=== PATIENT | female | born 1985 | race Two or more races ===

== ENCOUNTER 2018-10-19 17:59 | Emergency (ER) | payer SELFPAY ==
[2018-10-19] MEDS ORDERED: IBUPROFEN 600 MG TABLET PO ONE (18:07)
[2018-10-19] MEDS ORDERED: BUPIVACAINE HCL 0.5 % INJ/PF 30 ML SDV INJ ONE (18:07)
[2018-10-19] MEDS ORDERED: LIDOCAINE 1% INJ (10 MG/ML) 10 ML MDV INJ ONE (18:07)
--- NOTE | 2018-10-19 18:09 | ER Document Report ---
Addendum entered and electronically signed by TYLOR KING NP 10/19/18 18:38: ED Medical Screen (RME) - General Chief Complaint: Finger Injury Stated Complaint: FINGER INJURY Time Seen by Provider: 10/19/18 18:07 Mode of Arrival: Ambulatory TRAVEL OUTSIDE OF THE [place] IN LAST 30 DAYS: No - HPI Notes: 10/19/18 18:37 Digital block performed of the left middle finger using Marcaine. Patient had a normal neurovascular exam distally prior to anesthesia. Patient will be seen and evaluated by another provider for further evaluation and repair. - Related Data Allergies/Adverse Reactions: No Known Allergies Allergy (Unverified 10/19/18 18:06) Original Note: ED Medical Screen (RME) - General Chief Complaint: Finger Injury Stated Complaint: FINGER INJURY Time Seen by Provider: 10/19/18 18:07 Mode of Arrival: Ambulatory Information source: Patient TRAVEL OUTSIDE OF THE [place] IN LAST 30 DAYS: No - HPI Patient complains to provider of: LEFT FINGER INJURY Notes: 10/19/18 18:08 Patient here with complaints of left finger injury. She was picking up a bed when the bed actually fell injuring her left finger. No other injury. Tetanus up-to-date. Exam Patient noted to have distraction of the nail at the base of the nail with some bleeding. Plan X-ray, tetanus is up-to-date, potential digital block, Motrin ordered, patient will be seen and evaluated by provider in the back. An initial examination was made on the patient as part of the triage process, and it was determined a more comprehensive evaluation was necessary. Initial labs were ordered and patient was transferred to another provider in the ED who assumed care and finished evaluation and plan. - Related Data Allergies/Adverse Reactions: No Known Allergies Allergy (Unverified 10/19/18 18:06)
--- NOTE | 2018-10-19 18:39 | RADIOLOGY REPORT (SQ) ---
EXAM DESCRIPTION: HAND LEFT 3 VIEWS COMPLETED DATE/TIME: 10/19/2018 6:30 pm REASON FOR STUDY: FINGER INJURY COMPARISON: None. EXAM PARAMETERS: NUMBER OF VIEWS: Three views. TECHNIQUE: AP, lateral and oblique radiographic images acquired of the left hand. LIMITATIONS: None. FINDINGS: MINERALIZATION: Normal. BONES: Acute transverse fracture left 3rd finger distal phalanx at the level of the fingernail. Mild palmar angulation of the distal fracture fragment. JOINTS: No effusions. SOFT TISSUES: Swelling and laceration over the left 3rd finger tip at the level of the nail bed OTHER: No other significant finding. IMPRESSION: Acute transverse fracture distal phalanx left 3rd finger TECHNICAL DOCUMENTATION: JOB ID: [id number]- All Rights Reserved Reading location - IP/workstation name: [email or web address]
[2018-10-19] MEDS ORDERED: DIPH/PERTUSS(ACELL)/TETANUS VAC/PF 0.5 ML SYR (>=10YO) IM ONE (20:34)
[2018-10-19] MEDS ORDERED: LIDOCAINE 1% INJ (10 MG/ML) 10 ML MDV ONE (20:34)
--- NOTE | 2018-10-19 20:38 | ER Document Report ---
ED Hand/Wrist Injury - General Chief Complaint: Finger Injury Stated Complaint: FINGER INJURY Time Seen by Provider: 10/19/18 18:07 Primary Care Provider: YULIANA CINTRON DO [ACTIVE STAFF] - Follow up as needed Mode of Arrival: Ambulatory TRAVEL OUTSIDE OF THE [place] IN LAST 30 DAYS: No - HPI Notes: Patient presents to the emergency department with the chief complaint of left middle finger injury. Jermaineii used for interpretation. She states that earlier today she was lifting her bed when her finger got stuck in between the metal spring. Patient reports bleeding and deformity with severe pain. States that her tetanus is not up-to-date. She reported pain 5 out of 5. Denies any other injury. Prior to getting the digital block denied numbness or tingling to her finger. Patient was blocked in triage and denies pain at this time. - Related Data Allergies/Adverse Reactions: No Known Allergies Allergy (Unverified 10/19/18 18:06) Past Medical History - General Information source: Patient - Social History Smoking Status: Current Every Day Smoker Cigarette use (# per day): Yes - 1-2 cigarettes per day Smoking Education Provided: Yes - explained smoking can delay wound healing Frequency of alcohol use: None Drug Abuse: None Family History: None Patient has suicidal ideation: No Patient has homicidal ideation: No Renal/ Medical History: Denies: Hx Peritoneal Dialysis Review of Systems - Review of Systems Constitutional: No symptoms reported EENT: No symptoms reported Cardiovascular: No symptoms reported Respiratory: No symptoms reported Gastrointestinal: No symptoms reported Genitourinary: No symptoms reported Female Genitourinary: No symptoms reported Musculoskeletal: See HPI Skin: See HPI Hematologic/Lymphatic: No symptoms reported Neurological/Psychological: No symptoms reported Physical Exam - Vital signs Vitals: Temp Pulse Resp BP Pulse Ox 98 F 82 20 139/84 H 96 10/19/18 18:08 10/19/18 18:08 10/19/18 18:08 10/19/18 18:08 10/19/18 18:08 Interpretation: Normal - Respiratory Respiratory status: No respiratory distress Chest status: Nontender Breath sounds: Normal Chest palpation: Normal - Cardiovascular Rhythm: Regular Heart sounds: Normal auscultation, S1 appreciated, S2 appreciated - Abdominal Inspection: Normal Distension: No distension Bowel sounds: Normal Tenderness: Nontender Organomegaly: No organomegaly - Extremities Hand: Deformity - Deformity at the distal phalanx, + laceration and oozing of blood when dressing removed. Nail from cuticle. Patient able to bend finger at PIP joint, unable to flex/communication clerk distal phalanx due to injury. < 2 sec cap refill., Laceration, Nail injury Course - Re-evaluation Re-evalutation: 10/20/18 Initial x-ray showed an acute transverse fracture of the distal phalanx left third finger. Mild palmar angulation of the distal fracture fragment. No effusions. Swelling and laceration of the left third fingertip at the level of the nail bed. With assistance of Bebeto Henning PA-C, distal phalanx was reduced to provided adequate alignment. Patient tolerated well as her finger was still numb from the digital block. After the reduction, two 4-0 prolene sutures used to reattach nail to the nail bed and cuticle. Will obtain repeat XRAY and consult Orthopedics. Discussed case with Dr. Gil, agrees with plan at this time. Tdap updated in ER. 10/20/18 Repeat post-reduction x-ray read and showed and a considerable reduction of the fracture of the distal phalanx of the third finger. There is still a small amount of dorsal displacement and distraction. Called Dr. Cintron for Orthopedic consult who was in the ER and saw x-rays. Discussed case and agreed with treatment plan to include antibiotics, tdap, pain medication, xeroform and finger splint. Dr. Cintron states he will see the patient in the office later this week. Patient to call and make an appointment. Xeroform and finger splint applied to finger. Tip of finger warm and pink after finger splint applied. < 2 sec cap refill. Discharge instructions discussed in great detail with patient using the [employer] enginehouse brakeman. Provided patient with Dr. Kunz's address and telephone number and instructed to call tomorrow to make an appointment for later in the week. Patient given antibiotics as well as pain medication. Instructed to keep the dressing and finger splint clean dry and intact until orthopedic follow up. Patient aware that 2 sutures needs to be removed in 7-10 days and that she can return to the ER for this or go to Ortho. Patient concerned that she does not have insurance. After speaking with Dr. Cintron he states that no matter if she has insurance he can initially see her in his office. Patient reassured and made aware of this. Patient provided with strick return precautions to include fever, uncontrolled pain or any other concerning signs or symptoms. Patient verbalized understanding and all questions answer via Martii. 10/20/18 07:38 10/20/18 07:39 - Vital Signs Vital signs: Temp Pulse Resp BP Pulse Ox 98.9 F 74 18 124/73 100 10/19/18 22:56 10/19/18 22:56 10/19/18 22:56 10/19/18 22:56 10/19/18 22:56 - Diagnostic Test Radiology reviewed: Image reviewed, Reports reviewed Procedures - Laceration/Wound Repair Left Distal Finger 3rd digit Wound length (cm): 1 Wound's Depth, Shape: Nail-avulsed Laceration pre-procedure: Sterile PPE donned, Sterile drapes applied, Shur-Clens applied Volume Anesthetic (mLs): 0 - Anesthetic given in triage. Wound explored: No foreign body removed Wound Repaired With: Sutures Suture Size/Type: 4:0, Prolene Number of Sutures: 2 Layer Closure?: Yes Deep Layer Suture Size/Type: 4:0 Discharge - Discharge Clinical Impression: Phalanx, distal fracture of finger Qualifiers: Encounter type: initial encounter Finger: middle finger Fracture type: open Fracture alignment: displaced Laterality: left Qualified Code(s): S62.633B - Displaced fracture of distal phalanx of left middle finger, initial encounter for open fracture Condition: Stable Disposition: HOME, SELF-CARE Additional Instructions: Today you were seen for a finger injury. You do have a fracture of the left distal phalanx of the middle finger. We did have to realign your finger. A repeat xray was obtain and good realignment was noted. I spoke with Dr. Cintron (orthopedics) who will see you in his office later this week. Please call his office tomorrow for a follow up. Keep the dressing and splint clean dry and intact. Take [place] (a narcotic pain medication) as prescribed as well as Keflex (the antibiotic). Do not drive while on [place] as this medication can make you drowsy. Please return in 7-10 days to have the sutures in your finger removed. Hoy te vieron por vasquez lesin en el dedo. Usted tiene vasquez fractura de la falange distal izquierda del dedo medio. Tuvimos que realinear tu dedo. Se obtuvo vasquez repeticin de la radiografa y se observ vasquez buena realineacin. Habl con el Dr. Cintron (ortopedia), quien lo virginia en [place] oficina ms adelante esta semana. Por favor llame a [place] oficina maana para un seguimiento. Mantenga el apsito y la frula limpios, secos e intactos. [place] (un medicamento narctico para el dolor) segn lo prescrito, as gale Keflex (el antibitico). No conduzca mientras est en [place], ya que briana medicamento puede causarle somnolencia. Regrese al departamento de emergencias dentro de 7 a 10 sosa para que le retiren las suturas del dedo. Prescriptions: Cephalexin Monohydrate [Keflex 500 mg Capsule] 500 mg PO Q6H 5 Days #20 capsule Hydrocodone/Acetaminophen [[place] 5-325 mg Tablet] 1 tab PO Q6 #15 tablet Referrals: YULIANA CINTRON DO [ACTIVE STAFF] - Follow up as needed
[2018-10-19] MEDS ORDERED: CEPHALEXIN 500 MG CAPSULE PO ONE (22:26)
--- NOTE | 2018-10-19 22:31 | RADIOLOGY REPORT (SQ) ---
EXAM DESCRIPTION: XR LEFT HAND 3 OR MORE VIEWS COMPLETED DATE/TME: 10/19/2018 21:30 CLINICAL HISTORY: 33 years, Female, post-reduction x ray distal phalanx middle finger COMPARISON: X-ray left hand 10/19/2018 at 6:27 PM NUMBER OF VIEWS: TECHNIQUE: LIMITATIONS: None. FINDINGS: Since the prior x-rays, there has been considerable reduction of the fracture involving the distal phalanx of the third finger. There is still a small amount of dorsal displacement and distraction. IMPRESSION: There has been considerable reduction of the fracture of the distal phalanx of the third finger. There is still a small amount of dorsal displacement and distraction. copyright 2010 [employer]- All Rights Reserved
[2018-10-19] MEDS ORDERED: HYDROCODONE/ACETAMINOPHEN 5-325 MG (6 TAB/ER DISP) ONE (22:50)
[2018-10-19 22:57] VITALS: BP 124/73
[2018-10-19] MEDS ORDERED: HYDROCODONE/ACETAMINOPHEN 5-325 MG (6 TAB/ER DISP) PO PRN (23:23)
[2018-10-20] MEDS ORDERED: HYDROCODONE/ACETAMINOPHEN 5-325 MG (6 TAB/ER DISP) PO SCH
== END 2018-10-19 23:34 | disposition home or self-care (01) ==
LOC: ER 17:59
PROC: 0HQGXZZ Repair Left Hand Skin, External Approach (ICD-10-PCS; principal; 2018-10-19)
DX: S62.633B Displaced fracture of distal phalanx of left middle finger, initial encounter for open fracture (principal); X50.9XXA Other and unspecified overexertion or strenuous movements or postures, initial encounter; F17.210 Nicotine dependence, cigarettes, uncomplicated
CPT/HCPCS: 99283; 90471; 73130; 90715; 12001; J3490

== ENCOUNTER 2018-10-30 10:42 | Emergency (ER) | payer SELFPAY ==
[2018-10-30] MEDS ORDERED: LIDOCAINE 1% INJ-PF (10 MG/ML) 30 ML SDV ONE (11:35)
[2018-10-30] MEDS ORDERED: LIDOCAINE 2% INJ (20 MG/ML) 20 ML MDV INJ ONE (11:51)
[2018-10-30] MEDS ORDERED: HYDROCODONE/ACETAMINOPHEN 5-325 MG (6 TAB/ER DISP) PO PRN (11:52)
--- NOTE | 2018-10-30 11:54 | ER Document Report ---
HPI - HPI Time Seen by Provider: 10/30/18 10:48 Pain Level: 0 Context: Patient is a 33-year-old female who presents emergency department with a chief complaint of right distal middle finger pain. She is Bangladeshi-speaking only and needle loom tender was used with needle loom tender #[id number]. She was seen here last week in the emergency department and was diagnosed with a finger fracture. She states that she got her finger caught in an iron lisseth bed and had 3 stitches placed. She states that she also does have a fracture to the area. She denies any fever, body aches, or any other symptoms. She states that she still does have pain to the area. She has not been able to follow-up with orthopedics, because [place]. She states that since she does not have a Social Security number nor health insurance, she is unable to see orthopedics. Denies any past medical history. She did finish her antibiotics that were prescribed to her from her previous visit. - CONSTITUTIONAL Constitutional: DENIES: Fever, Chills - RESPIRATORY Respiratory: DENIES: Trouble Breathing - REPRODUCTIVE Reproductive: DENIES: : - MUSCULOSKELETAL Musculoskeletal: REPORTS: Extremity pain - right 3rd digit at nailbed. DENIES: Swelling - DERM Skin Color: Normal Skin Problems: Laceration - healing at 3rd digit nailbed Past Medical History - General Information source: Patient - Social History Smoking Status: Never Smoker Chew tobacco use (# tins/day): No Frequency of alcohol use: None Drug Abuse: None Family History: None Patient has suicidal ideation: No Patient has homicidal ideation: No Renal/ Medical History: Denies: Hx Peritoneal Dialysis Vertical Provider Document - CONSTITUTIONAL Agree With Documented VS: Yes General Appearance: No Apparent Distress - INFECTION CONTROL TRAVEL OUTSIDE OF THE [place].S. IN LAST 30 DAYS: No - HEENT HEENT: Atraumatic, PERRLA - NECK Neck: Normal Inspection - RESPIRATORY Respiratory: Breath Sounds Normal, No Respiratory Distress - CARDIOVASCULAR Cardiovascular: Regular Rate, Regular Rhythm Pulses: Normal: Radial - REPRODUCTIVE Female Genitalia: Normal Inspection - MUSCULOSKELETAL/EXTREMETIES Musculoskeletal/Extremeties: FROM - NEURO Level of Consciousness: Awake, Alert, Appropriate Motor/Sensory: No Motor Deficit, No Sensory Deficit - DERM Integumentary: Warm, Dry, Laceration - healing from previous injury; [address] Course - Re-evaluation Re-evalutation: 10/30/18 The patient still had the same xeroform on that she had on when she had her sutures placed. The patient states that she has not looked at the laceration since the sutures were place. She soaked her finger in water to help get the xeroform off. I attempted to remove the patient's sutures and the patient stated that she had pain when I tried to remove them. I then place a digital block to 3rd digit of her right hand and then removed the three sutures. She tolerated the procedure well. I will place her on another dose of augmentin as her skin still has a little bit of purulent drainage noted. I will also provide her with a finger splint to protect her finger. I explained to her that she needs to wash her finger twice a day and let her finger breathe. I instructed her on ibuprofen and tylenol use. Verbal discharge instructions were given to the patient. They verbalized understanding. They are stable for discharge. All instructions were given using [employer] translation system. - Vital Signs Vital signs: Temp Pulse Resp BP Pulse Ox 98.3 F 77 16 137/70 H 98 10/30/18 10:47 10/30/18 10:47 10/30/18 10:47 10/30/18 10:47 10/30/18 10:47 Procedures - Immobilization Right 3rd digit Pre-Proc Neuro Vasc Exam: Normal Immobilizer type: Finger splint (Static) Performed by: PCT Post-Proc Neuro Vasc Exam: Normal, Unchanged from pre-exam Alignment checked and good: Yes Discharge - Discharge Clinical Impression: Visit for suture removal Finger fracture, right Qualifiers: Encounter type: subsequent encounter Finger: middle finger Fracture type: open Phalanx: middle Fracture alignment: nondisplaced Fracture healing: with routine healing Qualified Code(s): S62.652D - Nondisplaced fracture of middle phalanx of right middle finger, subsequent encounter for fracture with routine healing Condition: Stable Disposition: HOME, SELF-CARE Additional Instructions: You are seen today in the emergency department for suture removal. Please make sure he keep the splint on your finger. You can take Tylenol 1000 mg and ibuprofen 600 mg every 6 hours as needed for your pain. You have also been given [place], medication to help with pain. Only take this medication as needed if ibuprofen and Tylenol do not work. You have also been prescribed antibiotics. Please finish all your antibiotics as prescribed. Please follow- up in the emergency department if you feel your pain is getting worse or you have increased swelling to the area. Prescriptions: Amox Tr/Potassium Clavulanate [Augmentin 245-125 Tablet] 1 tab PO BID 10 Days #20 tablet Print Language: Bangladeshi
--- NOTE | 2018-10-30 12:35 | RADIOLOGY REPORT (SQ) ---
EXAM DESCRIPTION: FINGER LEFT COMPLETED DATE/TIME: 10/30/2018 12:19 pm REASON FOR STUDY: FINGER PAIN, TRAMA 3RD DIGIT COMPARISON: None. EXAM PARAMETERS: NUMBER OF VIEWS: Three views. TECHNIQUE: AP, lateral and oblique radiographic images acquired of the left hand. LIMITATIONS: None. FINDINGS: MINERALIZATION: Normal. BONES: Transverse fracture of the 3rd digit distal phalanx with 3 -4 mm of posterior displacement wit h adjacent soft tissue laceration consistent with open fracture. No radiopaque foreign body. JOINTS: No effusion. OTHER: No other significant finding. IMPRESSION: Transverse fracture of the 3rd digit distal phalanx with 3 -4 mm of posterior displaceme nt with adjacent soft tissue laceration consistent with open fracture. No radiopaque foreign body. TECHNICAL DOCUMENTATION: JOB ID: [id number] [place]-72 2010 [employer]- All Rights Reserved Reading location - IP/workstation name: [email or web address][email or web address]
[2018-10-30 13:20] VITALS: BP 112/88
== END 2018-10-30 13:20 | disposition home or self-care (01) ==
LOC: ER 10:42
DX: S62.625D Displaced fracture of middle phalanx of left ring finger, subsequent encounter for fracture with routine healing (principal); S61.312D Laceration without foreign body of right middle finger with damage to nail, subsequent encounter; W23.0XXD Caught, crushed, jammed, or pinched between moving objects, subsequent encounter
CPT/HCPCS: 99282; 73140; 64450; J3490

== ENCOUNTER 2019-05-28 23:39 | Emergency (ER) | payer SELFPAY ==
[2019-05-29 00:27] LABS: ABSOLUTE BASOPHILS # (AUTO) 0.1 10^3/uL (0.0-0.2); ABSOLUTE EOSINOPHILS # (AUTO) 0.2 10^3/uL (0.0-0.6); ABSOLUTE LYMPHOCYTES (AUTO) 3.2 10^3/uL (0.5-4.7); ABSOLUTE MONOCYTES (AUTO) 0.7 10^3/uL (0.1-1.4); ABSOLUTE NEUT (AUTO) 8.9 10^3/uL (1.7-8.2); BASOPHILS % (AUTO) 0.7 % (0-2); EOSINOPHILS % (AUTO) 1.9 % (0-6); HEMATOCRIT 40.6 % (36.0-47.0); HEMOGLOBIN 13.7 g/dL (12.0-15.5); LYMPHOCYTES % (AUTO) 24.1 % (13-45); MEAN CORPUSCULAR HEMOGLOBIN 27.8 pg (27.0-33.4); MEAN CORPUSCULAR HGB CONC 33.8 g/dL (32.0-36.0); MEAN CORPUSCULAR VOLUME 82 fl (80-97); MONOCYTES % (AUTO) 5.5 % (3-13); PLATELET COUNT 391 10^3/uL (150-450); RED BLOOD COUNT 4.94 10^6/uL (3.72-5.28); RED CELL DISTRIBUTION WIDTH 13.7 % (11.5-14.0); SEGMENTED NEUTROPHILS % (AUTO) 67.8 % (42-78); TOTAL CELLS COUNTED % (AUTO) 100 %; WHITE BLOOD COUNT 13.1 10^3/uL (4.0-10.5)
[2019-05-29 00:44] LABS: ALBUMIN 3.9 g/dL (3.5-5.0); ALKALINE PHOSPHATASE 98 U/L (38-126); ANION GAP 9 (5-19); ASPARTATE AMINO TRANSFERASE 21 U/L (14-36); BILIRUBIN,DIRECT 0.1 mg/dL (0.0-0.4); BILIRUBIN,TOTAL 0.4 mg/dL (0.2-1.3); BLOOD UREA NITROGEN 13 mg/dL (7-20); CALCIUM 8.9 mg/dL (8.4-10.2); CARBON DIOXIDE 24 mmol/L (22-30); CHLORIDE 105 mmol/L (98-107); CREATINE KINASE 61 U/L (30-135); GLUCOSE 93 mg/dL (75-110); POTASSIUM 3.9 mmol/L (3.6-5.0); TOTAL PROTEIN 7.2 g/dL (6.3-8.2)
[2019-05-29 00:56] LABS: CREATINE KINASE MB 0.78 ng/mL (<4.55)
[2019-05-29 00:57] LABS: TROPONIN I < 0.012 ng/mL
--- NOTE | 2019-05-29 02:36 | RADIOLOGY REPORT (SQ) ---
CLINICAL HISTORY: chest pain COMPARISON: None. TECHNIQUE: XR CHEST 2 VIEWS 05/29/2019 12:00 AM TRUCKLOAD CHECKER FINDINGS: Cardiac silhouette is normal in size. Lungs are clear without consolidation, atelectasis, mass or edema. There is no pleural effusion. There is no pneumothorax. There are no acute osseous findings. IMPRESSION: Clear lungs.
[2019-05-29 04:30] VITALS: BP 114/73
[2019-05-29] MEDS ORDERED: KETOROLAC TROMETHAMINE INJ/PF 30 MG/1 ML SDV IV ONE (06:24)
--- NOTE | 2019-05-29 07:39 | ER Document Report ---
ED General - General Chief Complaint: Chest Pain Stated Complaint: CHEST PAIN Time Seen by Provider: 05/29/19 06:06 Notes: 33 year old female is spoken to thru [facility]. She relates 3 days of left sided chest pain. Pain has been constant for the past 2 days and worsening. Hurts worse with palpation. Also with cough. No fever or chills. [place] she was coming down with URI. TRAVEL OUTSIDE OF THE [place].S. IN LAST 30 DAYS: No - HPI Onset: Other - 3 days ago Severity: Severe Pain Level: 4 Associated symptoms: Hurts to breath. denies: Leg swelling Exacerbated by: Movement, Coughing, Deep breathing Relieved by: Denies - Related Data Allergies/Adverse Reactions: No Known Allergies Allergy (Verified 10/30/18 10:43) Past Medical History - Social History Smoking Status: Unknown if Ever Smoked Family History: None Patient has suicidal ideation: No Patient has homicidal ideation: No Renal/ Medical History: Denies: Hx Peritoneal Dialysis Review of Systems - Review of Systems Constitutional: No symptoms reported EENT: No symptoms reported Cardiovascular: See HPI, Chest pain, Palpitations Respiratory: No symptoms reported Gastrointestinal: No symptoms reported Genitourinary: No symptoms reported Female Genitourinary: No symptoms reported Musculoskeletal: No symptoms reported Skin: No symptoms reported Hematologic/Lymphatic: No symptoms reported Neurological/Psychological: No symptoms reported Physical Exam - Vital signs Vitals: Temp Pulse Resp BP Pulse Ox 97.9 F 76 16 137/75 H 98 05/28/19 23:57 05/28/19 23:57 05/28/19 23:57 05/28/19 23:57 05/28/19 23:57 Interpretation: Normal - General General appearance: Appears well, Alert - HEENT Head: Normocephalic, Atraumatic Eyes: Normal Pupils: PERRL - Respiratory Respiratory status: No respiratory distress Chest status: Nontender Breath sounds: Normal Chest palpation: Normal - Cardiovascular Rhythm: Regular Heart sounds: Normal auscultation Murmur: No - Abdominal Inspection: Normal Distension: No distension Bowel sounds: Normal Tenderness: Nontender Organomegaly: No organomegaly - Back Back: Normal, Nontender - Extremities General upper extremity: Normal inspection, Nontender, Normal color, Normal ROM, Normal temperature General lower extremity: Normal inspection, Nontender, Normal color, Normal ROM, Normal temperature, Normal weight bearing. No: Latisha's sign - Neurological Neuro grossly intact: Yes Cognition: Normal Orientation: AAOx4 Naomi Coma Scale Eye Opening: Spontaneous Naomi Coma Scale Verbal: Oriented Naomi Coma Scale Motor: Obeys Commands Naomi Coma Scale Total: 15 Speech: Normal Motor strength normal: LUE, RUE, LLE, RLE Sensory: Normal - Psychological Associated symptoms: Normal affect, Normal mood - Skin Skin Temperature: Warm Skin Moisture: Dry Skin Color: Normal Course - Re-evaluation Re-evalutation: 05/29/19 07:40 MDM 33 year old female with no evidence of cardiac process. [place] she was getting sick with bronchitis. Chest wall pain is constant and worsening since Thursday. - Vital Signs Vital signs: Temp Pulse Resp BP Pulse Ox 98 F 73 21 H 114/73 96 05/29/19 04:28 05/29/19 01:21 05/29/19 05:00 05/29/19 04:28 05/29/19 05:00 - Laboratory Result Diagrams: 05/28/19 00:12 05/28/19 00:12 Laboratory results interpreted by me: 05/28/19 00:12 WBC 13.1 H Absolute Neuts (auto) 8.9 H - Diagnostic Test Radiology reviewed: Reports reviewed - EKG Interpretation by Me EKG shows normal: Sinus rhythm - NSR NL [place] [address] elevation or depression my interpretation. Discharge - Discharge Clinical Impression: Chest wall pain, Bronchitis Condition: Good Disposition: HOME, SELF-CARE Instructions: Bronchitis ([facility]), Chest Wall Pain ([facility]), Family Physicians / Practices Additional Instructions: Rest, medicines as directed. Please return here for any problems or any concerns. Prescriptions: Ibuprofen [Motrin 600 mg Tablet] 600 mg PO TID #30 tablet Albuterol Sulfate [Proair HFA Inhalation Aerosol 8.5 gm MDI] 2 puff IH Q4H PRN #1 mdi PRN Reason:
[2019-05-29] MEDS ORDERED: ALBUTEROL SULFATE 0.083% NEB 2.5 MG/3 ML AMPUL NEB ONE (07:41)
--- NOTE | 2019-05-29 12:21 | EKG REPORT ---
SEVERITY:- NORMAL ECG - SINUS RHYTHM : Confirmed by: Jason Sanchez 29-May-2019 12:21:16
== END 2019-05-29 08:18 | disposition home or self-care (01) ==
LOC: ER 23:39
DX: J40 Bronchitis, not specified as acute or chronic (principal); R07.89 Other chest pain; R00.2 Palpitations
CPT/HCPCS: 93005; 94640; 99284; 96374; 36415; 82553; 82550; 85025; 80053; 84484; 85379; 71046; 93010; J1885

== ENCOUNTER 2019-12-13 08:42 | Emergency (ER) | payer OTHER ==
[2019-12-13 08:58] VITALS: BP 116/73
--- NOTE | 2019-12-13 10:37 | ER Document Report ---
ED General - General Chief Complaint: Other Stated Complaint: COVID TESTING Time Seen by Provider: 12/13/19 10:36 Primary Care Provider: SILVA HU MD [ACTIVE STAFF] - Follow up as needed Mode of Arrival: Ambulatory Information source: Patient TRAVEL OUTSIDE OF THE [place] IN LAST 30 DAYS: No - HPI Notes: Patient presents to the emergency room for COVID testing with use of [employer] for translation due to patient only speaking Tam[place]ight. Patient reports her brother who is been sleeping in the same house as her but in a different room, tested positive for COVID last week but did not tell the family for 3 days about his COVID-19 They do share the same bathroom. Patient states she is asymptomatic and does not have any medical issues today but would like to get tested for COVID due to exposure. Denies fevers, chills, chest pain,palpitations, shortness of breath, dyspnea, nausea, vomiting, diarrhea, abdominal pain, hemat uria,blurred vision, double vision, loss of vision, speech changes, LH, dizziness, syncope, headaches, wheezing, ST, URI, neck pain, weakness, bowel or bladder dysfunction, saddle anesthesia, numbness or tingling in bilateral upper or lower extremities equally, muscle paralysis, weakness in bilateral upper or lower extremities equally or rash. Denies IV drug use. MEDICATIONS: I agree with the patient medications as charted by the RN. ALLERGIES: I agree with the allergies as charted by the RN. PAST MEDICAL HISTORY/PAST SURGICAL HISTORY: Reviewed and agree as charted by RN. SOCIAL HISTORY: Reviewed and agree as charted by RN. FAMILY HISTORY: No significant familial comorbid conditions directly related to patient complaint EXAM: Reviewed vital signs as charted by RN. REVIEW OF SYSTEMS:reviewed vital signs by RN CONSTITUTIONAL : Denies fever, chills, or sweats. Denies recent illness. EENT: Denies eye, ear, throat, or mouth pain or symptoms. Denies nasal or sinus congestion or discharge. Denies throat, tongue, or mouth swelling or difficulty swallowing. CARDIOVASCULAR: Denies chest pain. Denies palpitations or racing or irregular heart beat. Denies ankle edema. RESPIRATORY: Denies cough, cold, or chest congestion. Denies shortness of breath, difficulty breathing, or wheezing. GASTROINTESTINAL: Denies abdominal pain or distention. Denies nausea, vomiting, or diarrhea. Denies blood in vomitus, stools, or per rectum. Denies black, tarry stools. Denies constipation. GENITOURINARY: Denies difficulty urinating, painful urination, burning, frequency, blood in urine, or discharge. FEMALE GENITOURINARY: Denies vaginal bleeding, heavy or abnormal periods, irregular periods. Denies vaginal discharge or odor. MUSCULOSKELETAL: Denies back or neck pain or stiffness. Denies joint pain or swelling. SKIN: Denies rash, lesions or sores. HEMATOLOGIC : Denies easy bruising or bleeding. LYMPHATIC: Denies swollen, enlarged glands. NEUROLOGICAL: Denies confusion or altered mental status. Denies passing out or loss of consciousness. Denies dizziness or lightheadedness. Denies headache. Denies weakness or paralysis or loss of use of either side. Denies problems with gait or speech. Denies sensory loss, numbness, or tingling. Denies seizures. PSYCHIATRIC: Denies anxiety or stress. Denies depression, suicidal ideation, or homicidal ideation. ALL OTHER SYSTEMS REVIEWED AND NEGATIVE. PHYSICAL EXAMINATION: GENERAL: Well-appearing, well-nourished and in no acute distress. HEAD: Atraumatic, normocephalic. EYES: Pupils equal round and reactive to light, extraocular movements intact, conjunctiva are normal. ENT: Nares patent, oropharynx clear without exudates. Moist mucous membranes. NECK: Normal range of motion, supple without lymphadenopathy LUNGS: Breath sounds clear to auscultation bilaterally and equal. No wheezes rales or rhonchi. HEART: Regular rate and rhythm without murmurs ABDOMEN: Soft, nontender, nondistended abdomen. No guarding, no rebound. No masses appreciated. Female : deferred Musculoskeletal: Normal range of motion, no pitting or edema. No cyanosis. NEUROLOGICAL: Cranial nerves grossly intact. Normal speech, normal gait. Normal sensory, motor exams PSYCH: Normal mood, normal affect. SKIN: Warm, Dry, normal turgor, no rashes or lesions noted. Dictation was performed using [employer] recognition software - Related Data Allergies/Adverse Reactions: No Known Allergies Allergy (Verified 10/30/18 10:43) Past Medical History - General Information source: Patient - Social History Smoking Status: Never Smoker Family History: None Patient has homicidal ideation: No Renal/ Medical History: Denies: Hx Peritoneal Dialysis Physical Exam - Vital signs Vitals: Temp Pulse Resp BP Pulse Ox 98.7 F 87 16 116/73 97 12/13/19 08:54 12/13/19 08:54 12/13/19 08:54 12/13/19 08:54 12/13/19 08:54 Course - Re-evaluation Re-evalutation: 12/13/19 13:40 Afebrile vital stable no distress. With the use of [employer] general superintendent discussed with patient that she does need a soft quarantine for 14 days, wash hands, social distance, wear a mask as needed. Health department will call with results within 3 to 4 days. Please follow guidelines per CDC of self quarantining. Patient be exposed to somebody positive for COVID, is in for that she does in fact have COVID and this is why self quarantining is so important for the next 2 weeks. This was all discussed with patient the [employer] general superintendent. After performing a Medical Screening Examination, I estimate there is LOW risk for ACUTE CORONARY SYNDROME, PULMONARY EMBOLI, RESPIRATORY FAILURE, SEPSIS OR MENINGITIS, thus I consider the discharge disposition reasonable. I have reevaluated this patient multiple times and no significant life threatening changes are noted. The patient and I have discussed the diagnosis and risks, and we agree with discharging home with close follow-up. We also discussed returning to the Emergency Department immediately if new or worsening symptoms occur. We have discussed the symptoms which are most concerning (e.g., changing or worsening pain, trouble swallowing or breathing, neck stiffness, fever) that necessitate immediate return. - Vital Signs Vital signs: Temp Pulse Resp BP Pulse Ox 98.7 F 87 16 116/73 97 12/13/19 09:20 12/13/19 08:54 12/13/19 08:54 12/13/19 08:54 12/13/19 08:54 Discharge - Discharge Clinical Impression: COVID-19 virus test result unknown Condition: Stable Disposition: HOME, SELF-CARE Instructions: COVID-19 Guidance for Persons Under Investigation Additional Instructions: Your check today for COVID testing. The health department will contact you with results. Please self quarantine for 14 days, practice social distancing, wash hands frequently, wear face mask routinely. Take Tylenol for fever control. Stay hydrated. Follow-up with your primary care provider after quarantining for 2 weeks. Please return to the emergency room if you experience any shortness of breath, chest pain, weakness, fatigue etc. 1. At least 3 days (72 hours) have passed since recovery defined as resolution of fever without the use of fever-reducing medications and improvement in respiratory symptoms (e.g., cough, shortness of breath) AND 2. At least 7 days have passed since symptoms first appeared. Return immediately for any new or worsening symptoms. Follow up with primary care provider, call tomorrow to make followup appointment. Referrals: SILVA HU MD [ACTIVE STAFF] - Follow up as needed Print Language: Tamazight
== END 2019-12-13 12:43 | disposition home or self-care (01) ==
LOC: ER 08:42
DX: U07.1 COVID-19 (principal)
CPT/HCPCS: 99282; 36415; 87635; C9803